=== PATIENT | male | born 1980 | race Caucasian/White ===

== ENCOUNTER 2024-03-01 09:52 | Outpatient (CLI) | payer BC | END 2024-03-01 23:59 | disposition home or self-care (01) | LOC: MRI 09:52 | PROVIDERS: ATTEND Physician Assistant Surgical | DX: M17.11 Unilateral primary osteoarthritis, right knee (principal); M85.661 Other cyst of bone, right lower leg; M25.561 Pain in right knee | CPT/HCPCS: 73721 ==